=== PATIENT | male | born 1955 | race Caucasian/White ===

== ENCOUNTER 2024-12-16 01:54 | Emergency (ER) | payer SELFPAY ==
[2024-12-16 02:06] VITALS: BP 170/98
[2024-12-16] MEDS: MOTRIN 600 MG PO (03:02)
[2024-12-16 04:52] VITALS: BP 159/112
== END 2024-12-16 05:35 ==
LOC: EMR 01:54
DX: S41.152A Open bite of left upper arm, initial encounter (principal); X58.XXXA Exposure to other specified factors, initial encounter; Z53.21 Procedure and treatment not carried out due to patient leaving prior to being seen by health care provider
CPT/HCPCS: 99281; 93005

== ENCOUNTER 2024-12-16 18:14 | Emergency (ER) | payer MEDICARE, OTHER, SELFPAY ==
[2024-12-16 18:23] VITALS: BP 124/72
--- NOTE | 2024-12-16 21:48 | ED.SKININJ ---
HPI-Injury
General
Chief Complaint: Skin Problem
Source: patient
Exam Limitations: none
Time Seen by Provider: 12/16/24 21:32
Nursing documentation reviewed up to this point in time: agreed with
History of Present Illness-Injury
Is this injury a work related problem?: No
Is pt an associate of [facility]/[place]?: No
Past History
Past History
ED Past Medical History: Other (Migraines)
ED Past Surgical History: Other (Hernia repair)
Social History
Tobacco: Non-smoker
Alcohol: None
Drug: None
Personal:
Living: with family
Employment: Employed
Course
Orders/Labs/Results
Orders:
Orders
12/16/24 21:48
Dexamethasone Pf [Decadron] 10 mg PO NOW STA
12/16/24 22:00
Famciclovir [Famvir] 500 mg PO NOW STA
Vital Signs
Initial and Last Documented VS:
Initial Vital Signs
Temp Pulse Resp BP Pulse Ox
98.7 F 71 18 124/72 98
12/16/24 18:23 12/16/24 18:23 12/16/24 18:23 12/16/24 18:23 12/16/24 18:23
Last Documented Vital Signs
Temp Pulse Resp BP Pulse Ox
98.7 F 70 18 144/88 100
12/16/24 18:23 12/16/24 22:03 12/16/24 22:03 12/16/24 22:03 12/16/24 22:03
*Pulse Oximetry
SaO2: 98
Oxygen Mode of Delivery: Room air
ED Attending Note
-
Portions of this chart may have been created with voice recognition software.� Occasional wrong word or��sound alike� substitutions may have occurred due to the inherent limitations of voice recognition software.
Discharge Plan
Departure
Patient Disposition: Home (Routine Discharge)
Date of Disposition: 12/16/24
Time of Disposition: 21:49
Patient with high blood pressure during this ER visit?: No
Condition: Good
Covid-19: Negative COVID-19
Discharge Problem:
Shingles
Instructions: Shingles
Prescriptions:
New
famciclovir 500 mg tablet
500 mg PO Q8H 7 Days Qty: 21 0RF
prednisone 10 mg Tablet
See Rx Instructions .ROUTE .COMPLEX Qty: 30 0RF
Rx Instructions:
Take By Mouth:
40 mg daily x3 days, 30 mg daily x3 days,
20 mg daily x3 days, 10 mg daily x3 days.
No Action
Meloxicam
7.5 mg PO DAILY
Propranolol
120 mg PO DAILY
Referrals:
Kentrell Mclean CRNP [Family Provider] - Tomorrow
Interventions
Interventions:
*Risk Screen - Suicide Last Done: 12/16/24 20:00
*General Assessment Last Done: 12/16/24 18:23
*Neglect/Abuse Screening Last Done: 12/16/24 20:00
*ED- Fall Risk Assessment Last Done: 12/16/24 18:23
*ED COVID-19 Vaccine History Last Done: 12/16/24 18:23
*Nursing Disposition Last Done: 12/16/24 22:11
ED-Skin Assessment Last Done: 12/16/24 20:00
Discharge Date and Time
Discharge Date/Time: 12/16/24 22:12
Print Language: GERMAN
--- NOTE | 2024-12-16 21:51 | ED.SKININJ ---
HPI-Injury
General
Chief Complaint: Skin Problem
Source: patient
Exam Limitations: none
Time Seen by Provider: 12/16/24 21:32
Nursing documentation reviewed up to this point in time: agreed with except
History of Present Illness-Injury
Is this injury a work related problem?: No
Is pt an associate of [facility]/[place]?: No
Initial Injury comments:
Patient to ED iwth complaint of painful rash to left anterior and posterior shoulder, left medial and lateral upper arm. Pain started approx 5 days ago,noticed rash a few days later. Denies fever/chills. Brought self to ED for eval.
Past History
Past History
ED Past Medical History: Other (Migraines)
ED Past Surgical History: Other (Hernia repair)
Social History
Tobacco: Non-smoker
Alcohol: None
Drug: None
Personal:
Living: with family
Employment: Employed
Review of Systems
Review of Systems
Allergies reviewed?: Yes
All Other Systems: ROS reviewed and negative except as documented in HPI and ROS
Constitutional: Reports no symptoms
EENT: Reports no symptoms
Respiratory: Reports no symptoms
Cardiac: Reports no symptoms
ABD/GI: Reports no symptoms
Musculoskeletal: Reports other (pain to left shoulder and upper arm)
Skin: Reports other (painful rash to left ant and posteiror chest, left upper arm)
Neurological: Reports no symptoms
Psychiatric: Reports no symptoms
Phy Exam
General Physical Exam
General Presentation: moderate distress
General age: appears stated age
General Skin: warm and dry
General Habitus: normal
General Mental: alert
Musculoskeletal Exam
Musculoskeletal Exam: full ROM and neuro vasc intact
Skin Exam
Skin Exam: normal color, warm/dry and other (Painful vesicular rash to left ant and posterior shoulderl left medial and lateral upper arm consistent with shingles)
Psychiatric Exam
Psychiatric Exam: normal mood/affect
Sepsis
Sepsis Screening
Sepsis Assessment: Sepsis Ruled Out
Sepsis Screen
Sepsis Screen: Sepsis Ruled Out
Date: 12/16/24
Time: 21:58
Course
Orders/Labs/Results
Orders:
Orders
12/16/24 21:48
Dexamethasone Pf [Decadron] 10 mg PO NOW STA
Famciclovir [Famvir] 500 mg PO NOW STA
Vital Signs
Initial and Last Documented VS:
Initial Vital Signs
Temp Pulse Resp BP Pulse Ox
98.7 F 71 18 124/72 98
12/16/24 18:23 12/16/24 18:23 12/16/24 18:23 12/16/24 18:23 12/16/24 18:23
Last Documented Vital Signs
Temp Pulse Resp BP Pulse Ox
98.7 F 71 18 124/72 98
12/16/24 18:23 12/16/24 18:23 12/16/24 18:23 12/16/24 18:23 12/16/24 21:48
*Pulse Oximetry
SaO2: 98
Oxygen Mode of Delivery: Room air
Patient hypoxic: no
*Critical Care Note
Total Time (30-74mins, 75-104mins- exclusive of procedures): Not Applicable
Update Note
Update Note:
Patietn with painful rash to left shoulder and left upper arm consistent with shingles. Placed on famvir. He is already prescrived morphine and oxycodone for chronic pain. WIll place on a steroid taper for nerve pain. He is discharge home and
will followupw tih PCP. Given instructions on s/s to return to ED and he is agreeable to plan.
ED Attending Note
-
Portions of this chart may have been created with voice recognition software.� Occasional wrong word or��sound alike� substitutions may have occurred due to the inherent limitations of voice recognition software.
Discharge Plan
Departure
Patient Disposition: Home (Routine Discharge)
Date of Disposition: 12/16/24
Time of Disposition: 21:49
Patient with high blood pressure during this ER visit?: No
Condition: Good
Covid-19: Negative COVID-19
Discharge Problem:
Shingles
Instructions: Shingles
Prescriptions:
New
famciclovir 500 mg tablet
500 mg PO Q8H 7 Days Qty: 21 0RF
prednisone 10 mg Tablet
See Rx Instructions .ROUTE .COMPLEX Qty: 30 0RF
Rx Instructions:
Take By Mouth:
40 mg daily x3 days, 30 mg daily x3 days,
20 mg daily x3 days, 10 mg daily x3 days.
No Action
Meloxicam
7.5 mg PO DAILY
Propranolol
120 mg PO DAILY
Referrals:
Kentrell Mclean CRNP [Family Provider] - Tomorrow
Interventions
Interventions:
*General Assessment Last Done: 12/16/24 18:23
*ED- Fall Risk Assessment Last Done: 12/16/24 18:23
*ED COVID-19 Vaccine History Last Done: 12/16/24 18:23
Discharge Date and Time
Print Language: GREENLANDIC
[2024-12-16] MEDS: DECADRON 10 MG PO (21:58)
[2024-12-16 22:03] VITALS: BP 144/88
[2024-12-16] MEDS: FAMVIR 500 MG PO (22:09)
== END 2024-12-16 22:12 | disposition home or self-care (01) ==
LOC: EMR 18:14
PROVIDERS: EMERGENCY PHYSICIAN Emergency Medicine
DX: B02.9 Zoster without complications (principal)
CPT/HCPCS: 99283